=== PATIENT | male | born 1950 | race Two or more races ===

== ENCOUNTER 2024-07-13 09:45 | Inpatient (IN) | payer OTHER ==
[~2024-07-13] VITALS: Ht 162.6 cm; Wt 69.9 kg
[2024-07-13] MEDS ORDERED: HORIZANT300 MG (09:57)
[2024-07-13] MEDS ORDERED: GLIMEPIRIDE2 MG (09:57)
[2024-07-13] MEDS ORDERED: LANTUS SOL100 UNIT/1 (09:57)
[2024-07-13] MEDS ORDERED: COZAAR50 MG (09:58)
[2024-07-13] MEDS ORDERED: GEMFIBROZIL600 MG (09:58)
[2024-07-13] MEDS ORDERED: PENTOXIFYLINE100 GM (09:58)
[2024-07-13 10:30] LABS: ABG PH 7.409 (7.35-7.45); ABG PO2 89.3 mmHg (80-100); ABG pCO2 30.6 mmHg (35-45); BASE EXCESS -4.4 mmol/l; BICARBONATE 18.9 mmol/l (23-25); SaO2 96.8 %; Tco2 19.9 mmol/l
[2024-07-13 10:34] LABS: HEMATOCRIT 43.6 % (39.0-48.0); HEMOGLOBIN 14.5 g/dL (13-16.00); INR 1.05; MEAN CELL VOLUME 83.6 fL (80.0-100.00); MEAN CORPUSCULAR HEMOGLOBIN 27.9 pg (27.00-32.0); MEAN CORPUSCULAR HGB CONC 33.3 g/dl (32.0-36.0); PARTIAL THROMBOPLASTIN TIME 22.7 SECONDS (22.0-34.0); PLATELET COUNT 152 K/uL (150-450); PROTHROMBIN TIME 11.4 SECONDS (9.0-11.5); RED BLOOD COUNT 5.22 M/uL (4.00-6.00); RED CELL DISTRIBUTION WIDTH 13.8 % (11.5-14.5)
[2024-07-13 10:41] LABS: ALBUMIN 3.3 gm/dL (3.4-5.0); BILIRUBIN TOTAL 0.54 mg/dL (0.3-1.2); CALCIUM 9.4 mg/dL (8.5-10.1); CREATININE SERUM 1.46 mg/dL (0.70-1.30); GFR 47.2; GLOBULINA 4.2 G/DL (2.4-3.5); POTASSIUM 3.73 mEq/L (3.5-5.1); TOTAL PROTEIN 7.5 gm/dL (6.4-8.2)
[2024-07-13 10:56] LABS: allen test SATISFACTORY; o2 21 %; puncture site RADIAL LEFT
[2024-07-13] MEDS ORDERED: ASPIRIN 325 MG TABLET.EC PO ONE (12:30)
[2024-07-13] MEDS ORDERED: NITROGLYCERIN IN 5 % DEXTROSE 50 MG/250 ML KIT IV ONE (12:30)
[2024-07-13] MEDS ORDERED: TICAGRELOR 90 MG TABLET PO ONE (12:30)
[2024-07-13 14:03] LABS: PH,URINE 5.5 (5.0-8.0); URINE APPEARANCE Clear; URINE BILIRRUBIN Negative (NEGATIVE); URINE BLOOD Trace; URINE COLOR Yellow; URINE KETONE Trace (NEGATIVE); URINE LEUKOCYTE Negative; URINE NITRATE Negative; URINE UROBILINOGEN 0.2 E.U./dl
[2024-07-13 14:04] LABS: URINE BACTERIA 27.7 uL (0.0-1933); URINE CAST 1.67 uL (0.0-1.40); URINE EPITHELIAL CELLS 4.4 uL (0.0-38.8); URINE WBC 6.3 uL (0.0-23.2)
[2024-07-13 14:10] LABS: URINE GLUCOSE 500 MG/DL (NEGATIVE); URINE PROTEIN 100 (NEGATIVE); URINE RBC 1.6 uL (0.0-20.8)
[2024-07-13] MEDS ORDERED: FAMOTIDINE/PF 20 MG in 0.9 % SODIUM CHLORIDE 8 ML IV PUSH STA (16:41)
[2024-07-13] MEDS ORDERED: INSULIN LISPRO 1,000 UNIT/10 ML UNITS SUBCUTANEO PRN (18:30)
[2024-07-13] MEDS ORDERED: DEXTROSE 50 % IN WATER 0.5 G/ML DISP.SYRIN IV PRN (18:30)
[2024-07-13] MEDS ORDERED: ENOXAPARIN SODIUM 60 MG/0.6 ML SYRINGE SUBCUTANEO SCH (18:37)
[2024-07-13] MEDS ORDERED: MORPHINE SULFATE 2 MG/ML CARTRIDGE IV PRN (18:45)
[2024-07-13] MEDS ORDERED: ACETAMINOPHEN 500 MG GEL..CAP PO PRN (18:45)
[2024-07-13] MEDS ORDERED: FAMOTIDINE/PF 20 MG in 0.9 % SODIUM CHLORIDE 8 ML IV PUSH SCH (21:00)
[2024-07-13 21:06] LABS: CKMB 4.3 NG/ML (0.5-3.6)
[2024-07-13 23:25] VITALS: BP 171/83; O2SAT 95
[2024-07-14] VITALS (11 sets, daily range): BP systolic 132–185; BP diastolic 79–96; O2SAT 95–100
[2024-07-14 07:58] LABS: HEMATOCRIT 39.7 % (39.0-48.0); HEMOGLOBIN 13.3 g/dL (13-16.00); MEAN CELL VOLUME 83.3 fL (80.0-100.00); MEAN CORPUSCULAR HEMOGLOBIN 27.9 pg (27.00-32.0); MEAN CORPUSCULAR HGB CONC 33.5 g/dl (32.0-36.0); PLATELET COUNT 164 K/uL (150-450); RED BLOOD COUNT 4.77 M/uL (4.00-6.00); RED CELL DISTRIBUTION WIDTH 13.7 % (11.5-14.5)
[2024-07-14 08:11] LABS: PH,URINE 5.5 (5.0-8.0); URINE APPEARANCE Cloudy; URINE BILIRRUBIN Negative (NEGATIVE); URINE BLOOD Large; URINE COLOR Yellow; URINE GLUCOSE Negative (NEGATIVE); URINE KETONE Trace (NEGATIVE); URINE LEUKOCYTE Moderate; URINE NITRATE Negative
[2024-07-14] MEDS ORDERED: ONDANSETRON HCL 4 MG in 0.9 % SODIUM CHLORIDE 50 ML IV PRN (08:15)
[2024-07-14] MEDS ORDERED: NITROGLYCERIN IN 5 % DEXTROSE 250 ML IV SCH (08:15)
[2024-07-14 08:16] LABS: URINE BACTERIA 221.7 uL (0.0-1933); URINE CAST 1.83 uL (0.0-1.40); URINE EPITHELIAL CELLS 37.5 uL (0.0-38.8); URINE RBC 1580.8 uL (0.0-20.8); URINE WBC 95.7 uL (0.0-23.2)
[2024-07-14 08:24] LABS: INR 1.1; PARTIAL THROMBOPLASTIN TIME 24.9 SECONDS (22.0-34.0); PROTHROMBIN TIME 11.9 SECONDS (9.0-11.5)
[2024-07-14 08:39] LABS: ALBUMIN 3.5 gm/dL (3.4-5.0); BILIRUBIN TOTAL 0.84 mg/dL (0.3-1.2); BILIRUBIN,CONJUGATED 0.12 mg/dL (0.0-0.2); BILIRUBIN,UNCONJUGATED 0.72 mg/dL (0.0-0.6); CALCIUM 9.6 mg/dL (8.5-10.1); CREATININE SERUM 1.35 mg/dL (0.70-1.30); GFR 51.66; GLOBULINA 4.2 G/DL (2.4-3.5); POTASSIUM 4.13 mEq/L (3.5-5.1); TOTAL PROTEIN 7.7 gm/dL (6.4-8.2)
[2024-07-14 08:40] LABS: ERYTHROCYTE SEDIMENTATION RATE 22 mm/hr
[2024-07-14 08:53] LABS: C-REACTIVE PROTEIN 0.51 MG/DL (0.00-0.29)
[2024-07-14] MEDS ORDERED: PENTOXIFYLLINE 400 MG TABLET.SA PO SCH (09:00)
[2024-07-14] MEDS ORDERED: GABAPENTIN 300 MG CAPSULE PO SCH (09:00)
[2024-07-14] MEDS ORDERED: GEMFIBROZIL 600 MG TABLET PO SCH (09:00)
[2024-07-14] MEDS ORDERED: LOSARTAN POTASSIUM 50 MG TABLET PO SCH (09:00)
[2024-07-14 09:12] LABS: URINE PROTEIN 100 (NEGATIVE)
[2024-07-14 09:28] LABS: CKMB 4.2 NG/ML (0.5-3.6)
[2024-07-14] MEDS ORDERED: ASPIRIN 81 MG TABLET.EC PO SCH (16:27)
[2024-07-14] MEDS ORDERED: AMLODIPINE BESYLATE 5 MG TABLET PO SCH (16:35)
[2024-07-14] MEDS ORDERED: TICAGRELOR 90 MG TABLET PO SCH (17:00)
[2024-07-14] MEDS ORDERED: ATORVASTATIN CALCIUM 40 MG TABLET PO SCH (17:00)
[2024-07-15] VITALS (22 sets, daily range): BP systolic 122–164; BP diastolic 71–111; O2SAT 95–100
[2024-07-15 06:16] LABS: HEMATOCRIT 38.5 % (39.0-48.0); HEMOGLOBIN 12.8 g/dL (13-16.00); MEAN CELL VOLUME 83.6 fL (80.0-100.00); MEAN CORPUSCULAR HEMOGLOBIN 27.9 pg (27.00-32.0); MEAN CORPUSCULAR HGB CONC 33.3 g/dl (32.0-36.0); PLATELET COUNT 139 K/uL (150-450); RED CELL DISTRIBUTION WIDTH 13.6 % (11.5-14.5)
[2024-07-15 06:33] LABS: ALBUMIN 3.3 gm/dL (3.4-5.0); BILIRUBIN TOTAL 0.87 mg/dL (0.3-1.2); CALCIUM 9.2 mg/dL (8.5-10.1); CREATININE SERUM 1.2 mg/dL (0.70-1.30); GFR 59.18; GLOBULINA 3.8 G/DL (2.4-3.5); MAGNESIUM 1.9 mg/dL (1.8-2.4); PHOSPHOROUS 2.5 mg/dL (2.5-4.9); POTASSIUM 3.7 mEq/L (3.5-5.1); TOTAL PROTEIN 7.1 gm/dL (6.4-8.2)
[2024-07-15] MEDS ORDERED: LOSARTAN POTASSIUM 50 MG TABLET PO STA (15:36)
[2024-07-15] MEDS ORDERED: AMLODIPINE BESYLATE 5 MG TABLET PO STA (15:37)
[2024-07-15] MEDS ORDERED: AMIODARONE HCL 50 MG/ML AMPUL IV SCH (20:45)
[2024-07-16] VITALS (14 sets, daily range): BP systolic 108–169; BP diastolic 70–102; O2SAT 97–100
[2024-07-16] MEDS ORDERED: ENALAPRILAT DIHYDRATE 1.25 MG/ML VIAL IV PRN (00:15)
[2024-07-16] MEDS ORDERED: AMLODIPINE BESYLATE 10 MG TABLET PO SCH (09:00)
[2024-07-16] MEDS ORDERED: INSULIN GLARGINE,HUM.REC.ANLOG 1,000 UNITS/10 ML UNITS SUBCUTANEO SCH (09:00)
[2024-07-16] MEDS ORDERED: LOSARTAN POTASSIUM 100 MG TABLET PO SCH (09:00)
[2024-07-16] MEDS ORDERED: HYDROCHLOROTHIAZIDE 25 MG TABLET PO SCH (14:15)
[2024-07-17 00:52] VITALS: BP 152/102; O2SAT 99
[2024-07-17 04:05] VITALS: BP 140/79
[2024-07-17 06:10] LABS: HEMOGLOBIN 15.1 g/dL (13-16.00); MEAN CELL VOLUME 83.5 fL (80.0-100.00); MEAN CORPUSCULAR HGB CONC 33.5 g/dl (32.0-36.0); PLATELET COUNT 154 K/uL (150-450); RED BLOOD COUNT 5.39 M/uL (4.00-6.00); RED CELL DISTRIBUTION WIDTH 13.4 % (11.5-14.5)
[2024-07-17 07:08] LABS: ALBUMIN 3.4 gm/dL (3.4-5.0); BILIRUBIN TOTAL 0.39 mg/dL (0.3-1.2); CALCIUM 9.8 mg/dL (8.5-10.1); CREATININE SERUM 1.4 mg/dL (0.70-1.30); GFR 49.54; GLOBULINA 4.2 G/DL (2.4-3.5); MAGNESIUM 2.2 mg/dL (1.8-2.4); PHOSPHOROUS 2.5 mg/dL (2.5-4.9); POTASSIUM 3.63 mEq/L (3.5-5.1); TOTAL PROTEIN 7.6 gm/dL (6.4-8.2)
[2024-07-17 08:18] VITALS: BP 150/83; O2SAT 99
[2024-07-17] MEDS ORDERED: FAMOTIDINE/PF 20 MG in 0.9 % SODIUM CHLORIDE 8 ML IV PUSH SCH (09:00)
[2024-07-17] MEDS ORDERED: FAMOtidine 20 MG TABLET PO SCH (09:00)
[2024-07-17] MEDS ORDERED: MECLIZINE HCL 25 MG TABLET PO STA (14:55)
[2024-07-17] MEDS ORDERED: MECLIZINE HCL 12.5 MG TABLET PO PRN (15:15)
[2024-07-17] MEDS ORDERED: PENTOXIFYLLINE400 MG PO (15:20)
[2024-07-17] MEDS ORDERED: AMLODIPINE BESY10 MG PO (15:20)
[2024-07-17] MEDS ORDERED: LIPITOR40 M1 PO (15:20)
[2024-07-17] MEDS ORDERED: CLOPIDOGREL BIS75 MG PO (15:20)
[2024-07-17] MEDS ORDERED: LOSARTAN POTAS100 MG PO (15:21)
[2024-07-17] MEDS ORDERED: ST. JOSEPH ASPI81 M2 PO (15:21)
[2024-07-17] MEDS ORDERED: GEMFIBROZIL600 MG PO (15:21)
[2024-07-17] MEDS ORDERED: MECLIZINE HCL12.5 MG PO (15:22)
[2024-07-17] MEDS ORDERED: HYDROCHLOROTHIA25 MG PO (15:22)
[2024-07-17] MEDS ORDERED: GABAPENTIN300 MG PO (15:22)
[2024-07-17] MEDS ORDERED: GLIMEPIRIDE2 MG PO (15:23)
[2024-07-17] MEDS ORDERED: PANTOPRAZOLE SO40 MG PO (15:23)
[2024-07-17] MEDS ORDERED: LANTUS SOL100 UNIT/1 SUBCUTANEO (15:24)
[2024-07-17] MEDS ORDERED: hydrALAZINE HCL 20 MG VIAL IV PRN (17:00)
[2024-07-17] MEDS ORDERED: hydrALAZINE HCL 25 MG TABLET PO SCH (17:00)
[2024-07-17] MEDS ORDERED: GLIMEPIRIDE 2 MG TABLET PO SCH (21:00)
[2024-07-18] MEDS ORDERED: PANTOPRAZOLE SODIUM 40 MG TABLET.DR PO SCH (09:00)
[2024-07-18] MEDS ORDERED: CLOPIDOGREL BISULFATE 75 MG TABLET PO SCH (09:00)
== END 2024-07-17 17:06 | disposition home or self-care (01) | DRG 281 ==
LOC: ER 09:45 → ICU 18:46 → ICU-2 18:46 → ICU 07-14 03:58 → MEDI 07-16 11:57
PROVIDERS: General Practice; ADMIT Internal Medicine; ATTEND Internal Medicine
PROC: B246ZZZ Ultrasonography of Right and Left Heart (ICD-10-PCS; principal; 2024-07-13)
PROC: B020ZZZ Computerized Tomography (CT Scan) of Brain (ICD-10-PCS; 2024-07-13)
PROC: B345ZZZ Ultrasonography of Bilateral Common Carotid Arteries (ICD-10-PCS; 2024-07-13)
PROC: B348ZZZ Ultrasonography of Bilateral Internal Carotid Arteries (ICD-10-PCS; 2024-07-13)
PROC: 4A12X4Z Monitoring of Cardiac Electrical Activity, External Approach (ICD-10-PCS; 2024-07-13)
DX: I21.4 Non-ST elevation (NSTEMI) myocardial infarction (principal); I38 Endocarditis, valve unspecified; N17.9 Acute kidney failure, unspecified; I48.92 Unspecified atrial flutter; I48.91 Unspecified atrial fibrillation; I12.9 Hypertensive chronic kidney disease with stage 1 through stage 4 chronic kidney disease, or unspecified chronic kidney disease; E11.65 Type 2 diabetes mellitus with hyperglycemia; N18.9 Chronic kidney disease, unspecified; R55 Syncope and collapse; D69.6 Thrombocytopenia, unspecified; Z79.4 Long term (current) use of insulin; Z87.891 Personal history of nicotine dependence

== ENCOUNTER 2025-03-14 10:08 | Emergency (ER) | payer OTHER ==
[~2025-03-14] VITALS: Ht 162.6 cm; Wt 68.0 kg
[~2025-03-14 10:08] MED LIST: AMLODIPINE BESY10 MG PO; CLOPIDOGREL BIS75 MG PO; COZAAR50 MG; GABAPENTIN300 MG PO; GEMFIBROZIL600 MG; GEMFIBROZIL600 MG PO; GLIMEPIRIDE2 MG; GLIMEPIRIDE2 MG PO; HORIZANT300 MG; HYDROCHLOROTHIA25 MG PO; LANTUS SOL100 UNIT/1; LANTUS SOL100 UNIT/1 SUBCUTANEO; LIPITOR40 M1 PO; LOSARTAN POTAS100 MG PO; MECLIZINE HCL12.5 MG PO; PANTOPRAZOLE SO40 MG PO; PENTOXIFYLINE100 GM; PENTOXIFYLLINE400 MG PO; ST. JOSEPH ASPI81 M2 PO
[2025-03-14] MEDS ORDERED: 0.9 % SODIUM CHLORIDE 250 ML IV SCH (10:45)
[2025-03-14 11:15] LABS: BASO % 0.5 % (0.1-1.2); EOS # 0.95 (0.04-0.54); EOS % 7.5 % (0.7-7.0); HEMATOCRIT 41.1 % (40.1-51.0); HEMOGLOBIN 13.6 g/dL (13.7-17.5); LYMPH # 1.42 (1.18-3.74); LYMPH % 11.3 % (19.3-53.1); MEAN CORPUSCULAR HEMOGLOBIN 26.8 pg (25.6-32.2); MONO # 0.68 (0.24-0.82); MONO % 5.4 % (4.7-12.5); NEUT # 9.48 (1.56-6.13); NEUT % 75.1 % (34.0-71.1); PLATELET COUNT 191 K/uL (163-369); RED BLOOD COUNT 5.08 M/uL (4.63-6.08); RED CELL DISTRIBUTION WIDTH 12.4 % (11.6-14.4)
[2025-03-14 11:44] LABS: ALBUMIN 3.5 gm/dL (3.4-5.0); BILIRUBIN TOTAL 0.25 mg/dL (0.3-1.2); CALCIUM 10.1 mg/dL (8.5-10.1); CREATININE SERUM 1.91 mg/dL (0.70-1.30); GFR 34.52; GLOBULINA 4.4 G/DL (2.4-3.5); POTASSIUM 4.29 mEq/L (3.5-5.1); PROSTATIC SPECIFIC ANTIGEN 1.39 NG/ML (0.010-4.00); TOTAL PROTEIN 7.9 gm/dL (6.4-8.2)
[2025-03-14 12:19] LABS: PH,URINE 5.5 (5.0-8.0); URINE APPEARANCE Clear; URINE BILIRRUBIN Negative (NEGATIVE); URINE BLOOD Negative; URINE COLOR Yellow; URINE KETONE Negative (NEGATIVE); URINE LEUKOCYTE Negative; URINE NITRATE Negative; URINE PROTEIN Trace (NEGATIVE); URINE UROBILINOGEN 0.2 E.U./dl
[2025-03-14 12:21] LABS: URINE BACTERIA 4.8 uL (0.0-1933); URINE EPITHELIAL CELLS 1.5 uL (0.0-38.8); URINE WBC 2.3 uL (0.0-23.2)
[2025-03-14 12:25] LABS: URINE CAST 0.88 uL (0.0-1.40); URINE GLUCOSE 500 MG/DL (NEGATIVE); URINE RBC 0.8 uL (0.0-20.8)
== END 2025-03-14 14:19 | disposition home or self-care (01) ==
LOC: ER 10:08
PROVIDERS: Emergency Medicine
DX: R11.10 Vomiting, unspecified (principal); T38.3X5S Adverse effect of insulin and oral hypoglycemic [antidiabetic] drugs, sequela; I10 Essential (primary) hypertension; E11.9 Type 2 diabetes mellitus without complications; Z79.4 Long term (current) use of insulin